=== PATIENT | female | born 1975 | race Asian ===

== ENCOUNTER 2023-04-09 09:37 | Emergency (ER) | payer MEDICAID ==
[~2023-04-09] VITALS: Ht 142.2 cm; Wt 66.4 kg
[2023-04-09 09:42] VITALS: BP 185/98
[2023-04-09 10:04] LABS: BASOPHILS % (AUTO) 0.3 % (0-1); EOSINOPHILS # (AUTO) 0.1 X10'3 (0-0.9); EOSINOPHILS % (AUTO) 1.4 % (0-6); HEMATOCRIT 32.5 % (35.0-45.0); HEMOGLOBIN 10.4 g/dl (12.0-16.0); LYMPHOCYTES # (AUTO) 1.9 X10'3 (1.1-4.8); LYMPHOCYTES % (AUTO) 25.4 % (21-51); MEAN CORPUSCULAR HEMOGLOBIN 22.1 PG (27.0-31.0); MEAN CORPUSCULAR HGB CONC 31.9 g/dL (33.0-36.5); MEAN CORPUSCULAR VOLUME 69.2 FL (78-98); MEAN PLATELET VOLUME 7.1 FL (7.4-10.4); MONOCYTES # (AUTO) 0.4 X10'3 (0-0.9); NEUTROPHILS % (AUTO) 67.9 % (42-75); PLATELET COUNT 278 X10'3 (140-440); RED BLOOD COUNT 4.69 X10'6 (4.20-5.60); RED CELL DISTRIBUTION WIDTH 16.3 % (11.5-14.5); WHITE BLOOD COUNT 7.3 X10'3 (4.5-11.0)
[2023-04-09 10:06] LABS: CLARITY,URINE SLIGHTLY CLOUDY (Clear); COLOR,URINE YELLOW (Yellow); GLUCOSE, URINE NEGATIVE (Neg); KETONES,URINE NEGATIVE (Neg); LEUKOCYTE ESTERASE ,URINE NEGATIVE (Neg); NITRITES, URINE NEGATIVE (Neg); OCCULT BLOOD,URINE TRACE-INTACT (Neg); PROTEIN,URINE NEGATIVE (Neg); URINE HCG NEGATIVE (NEG); UROBILINOGEN,URINE 0.2 E.U/dL (0.2-1.0)
[2023-04-09 10:08] LABS: UA COLLECTION TYPE CLN CATCH MIDSTREAM
[2023-04-09 10:20] LABS: ALANINE AMINOTRANSFERASE 15 U/L (12-78); ALBUMIN 3.8 G/DL (3.4-5.0); ALKALINE PHOSPHATASE 58 IU/L (46-116); ASPARTATE AMINO TRANSFERASE 15 U/L (10-37); BILIRUBIN,TOTAL 0.1 MG/DL (0.1-1.0); BLOOD UREA NITROGEN 24 MG/DL (7-18); CALCIUM 9.1 MG/DL (8.5-10.1); CHLORIDE 101 MMOL/L (99-107); CREATININE 0.96 MG/DL (0.40-0.90); GLUCOSE 182 MG/DL (70-104); LIPASE 110 U/L (73-393); POTASSIUM 4.4 MMOL/L (3.5-5.1); TOTAL CARBON DIOXIDE 26.8 MMOL/L (24-32); TOTAL PROTEIN 7.6 G/DL (6.4-8.2); eGFR 62 ML/MIN
[2023-04-09 10:27] LABS: BACTERIA,URINE 3+ /HPF (Neg)
[2023-04-09 10:28] LABS: HYALINE CASTS 0-3 /LPF (NEGATIVE); RBC,URINE 0-2 /HPF (0-2); SQUAMOUS EPITHELIAL CELL,UR MODERATE /LPF (FEW); WBC,URINE 0-4 /HPF (0-4)
[2023-04-09 10:29] LABS: PLATELET ESTIMATE NORMAL
[2023-04-09 10:30] LABS: ANISOCYTOSIS 1+; MICROCYTOSIS 2+
[2023-04-09 10:31] LABS: ELLIPTOCYTES FEW; HYPOCHROMASIA 1+
[2023-04-09 10:32] LABS: SCHISTOCYTES FEW
[2023-04-09 10:37] LABS: ANION GAP 5 (8-16); SODIUM 133 MMOL/L (135-145)
[2023-04-09] MEDS ORDERED: cephalexin 250mg capsule PO ONE (11:10)
[2023-04-09] MEDS ORDERED: ondansetron 4mg rapidly disintigrating tab PO ONE (11:10)
[2023-04-09] MEDS ORDERED: CEPH-585 PO (11:21)
[2023-04-09] MEDS ORDERED: ketorolac trometh inj. 60 MG/2 ML VIAL IM ONE (12:00)
== END 2023-04-09 12:06 | disposition home or self-care (01) ==
LOC: ER 09:38
DX: R10.31 Right lower quadrant pain (principal); R11.0 Nausea
CPT/HCPCS: 76700; 80053; 81001; 81025; 83690; 85008; 85025; 96372; 99285; J1885

== ENCOUNTER 2023-10-20 18:23 | Emergency (ER) | payer MEDICAID ==
[~2023-10-20] VITALS: Ht 139.7 cm; Wt 38.6 kg
[2023-10-20] MEDS ORDERED: hydrALAZINE 20mg/ml inj. IV ONE ×2 (18:30→19:05)
[2023-10-20] MEDS ORDERED: nitroGLYCERIN 0.4mg SUBLingual tab SL PRN (18:35)
[2023-10-20] MEDS ORDERED: aspirin 325mg tablet, delayed-release (Ecotrin) PO ONE (18:35)
[2023-10-20 18:51] LABS: BASOPHILS % (AUTO) 0.4 % (0-1); EOSINOPHILS # (AUTO) 0.1 X10'3 (0-0.9); EOSINOPHILS % (AUTO) 1.1 % (0-6); HEMATOCRIT 34.8 % (35.0-45.0); HEMOGLOBIN 10.8 g/dl (12.0-16.0); LYMPHOCYTES # (AUTO) 2.4 X10'3 (1.1-4.8); LYMPHOCYTES % (AUTO) 42.8 % (21-51); MEAN CORPUSCULAR HEMOGLOBIN 20.9 PG (27.0-31.0); MEAN CORPUSCULAR VOLUME 67.5 FL (78-98); MEAN PLATELET VOLUME 7.2 FL (7.4-10.4); MONOCYTES # (AUTO) 0.4 X10'3 (0-0.9); MONOCYTES % (AUTO) 6.6 % (2-12); NEUTROPHILS # (AUTO) 2.8 X10'3 (1.8-7.7); NEUTROPHILS % (AUTO) 49.1 % (42-75); PLATELET COUNT 304 X10'3 (140-440); RED BLOOD COUNT 5.16 X10'6 (4.20-5.60); RED CELL DISTRIBUTION WIDTH 16.4 % (11.5-14.5); WHITE BLOOD COUNT 5.7 X10'3 (4.5-11.0)
[2023-10-20 19:00] LABS: ALANINE AMINOTRANSFERASE 23 U/L (12-78); ALBUMIN 3.7 G/DL (3.4-5.0); ALBUMIN/GLOBULIN RATIO 0.8 (1.1-1.5); ALKALINE PHOSPHATASE 75 IU/L (46-116); ANION GAP 11 (8-16); ASPARTATE AMINO TRANSFERASE 18 U/L (10-37); BILIRUBIN,TOTAL 0.5 MG/DL (0.1-1.0); BLOOD UREA NITROGEN 11 MG/DL (7-18); BUN/CREATININE RATIO 14.1 (10.0-20.0); CALCIUM 9.3 MG/DL (8.5-10.1); CHLORIDE 100 MMOL/L (99-107); CREATININE 0.78 MG/DL (0.40-0.90); GLUCOSE 115 MG/DL (70-104); POTASSIUM 3.5 MMOL/L (3.5-5.1); SODIUM 137 MMOL/L (135-145); TOTAL CARBON DIOXIDE 26.2 MMOL/L (24-32); TOTAL PROTEIN 8.2 G/DL (6.4-8.2); eCRCL 46 ML/MIN; eGFR 78 ML/MIN
[2023-10-20 19:09] LABS: MAGNESIUM 1.7 MG/DL (1.5-2.4); PRO BRAIN NATRIURETIC PEPTIDE 47 PG/ML (0-125)
[2023-10-20 19:31] LABS: PLATELET ESTIMATE NORMAL
[2023-10-20 19:32] LABS: ANISOCYTOSIS 1+; MICROCYTOSIS 2+
[2023-10-20] MEDS ORDERED: pantoprazole 40 MG vial IV ONE (20:00)
[2023-10-20] MEDS ORDERED: iohexol 300mg/ml 100ml inj. ONE (20:14)
[2023-10-20] MEDS ORDERED: mag hydrox/Alum hydrox/simeth 30ml oral suspension PO ONE (20:15)
[2023-10-20] MEDS ORDERED: LIDOcaine Viscous 15ml cup TP ONE (20:15)
[2023-10-20] MEDS ORDERED: MESSAGE TO NURSING PO NR (20:30)
[2023-10-20] MEDS ORDERED: labetalol 20mg/4ml (5mg/ml) syringe IV ONE ×2 (21:20→22:35)
[2023-10-20] MEDS ORDERED: normal saline 500ml IV soln 500 ML IV SCH (21:20)
[2023-10-20] MEDS ORDERED: morphine 2 MG/ML inj. syringe IV ONE (22:35)
[2023-10-20] MEDS ORDERED: DICY10CA88 PO ×2 (23:22→23:39)
[2023-10-20 23:45] VITALS: BP 141/108; PULSE 95; RESP 20; TEMP 98.6; O2SAT 98
== END 2023-10-20 23:47 | disposition home or self-care (01) ==
LOC: ER 18:24
DX: R07.9 Chest pain, unspecified (principal); I10 Essential (primary) hypertension; R00.2 Palpitations; R10.9 Unspecified abdominal pain
CPT/HCPCS: 36415; 71045; 71260; 74177; 80053; 83735; 83880; 84484; 85008; 85025; 93005; 96374; 96375; 96376; 99285; C9113; J0360; J2270; J3490; J7040; J7050; Q9967